=== PATIENT | female | born 1975 | race Caucasian/White ===

== ENCOUNTER 2022-02-14 14:21 | Emergency (ER) | payer MEDICARE, MEDICAID ==
[~2022-02-14] VITALS: Ht 152.4 cm; Wt 70.9 kg
[2022-02-14 14:56] LABS: BASO % 0.4 % (0.0-1.0); EOS # 0.2 10^3/uL (0.0-0.5); EOS % 1.6 % (0.0-3.0); HEMATOCRIT 38.2 % (36.0-47.0); HEMOGLOBIN 12.9 g/dl (12.0-15.5); LYMPH # 2.9 10^3/uL (1.5-5.0); MEAN CORPUSCULAR HEMOGLOBIN 34.3 pg (27.0-33.0); MEAN CORPUSCULAR HGB CONC 33.8 g/dl (32.0-36.5); MEAN CORPUSCULAR VOLUME 101.6 fl (80.0-96.0); MONO # 0.5 10^3/uL (0.0-0.8); MONO % 4.9 % (2.0-8.0); NEUTROPHILS # 6.1 10^3/uL (1.5-8.5); NEUTROPHILS % 62.7 % (36.0-66.0); PLATELET COUNT, AUTOMATED 228 10^3/uL (150-450); RED BLOOD COUNT 3.76 10^6/uL (4.00-5.40); WHITE BLOOD COUNT 9.7 10^3/uL (4.0-10.0)
[2022-02-14 15:07] LABS: INR 0.94; PARTIAL THROMBOPLASTIN TIME 30.8 SECONDS (25.9-37.0)
[2022-02-14 15:19] LABS: CK-MB VALUE MASS < 1.0 NG/ML (<3.6); CPK CREATINE PHOSPHOKINASE 61 U/L (26-192); MB/CK RELATIVE INDEX 1.64 (< OR =4)
[2022-02-14] MEDS ORDERED: ISOVUE-370 76% 100ML VIAL As Ordered ONE (15:19)
[2022-02-14] MEDS ORDERED: MORPHINE 4 MG/ML 1ML VIAL/SYRINGE IV ONE ×2 (15:20→17:00)
[2022-02-14 15:23] LABS: ALBUMIN 3.6 GM/DL (3.2-5.2); ALT/SGPT 13 U/L (12-78); AMYLASE 26 U/L (25-115); BILIRUBIN,DIRECT < 0.1 MG/DL (0.0-0.2); BILIRUBIN,TOTAL 0.5 MG/DL (0.2-1.0); ETHYL ALCOHOL (ETHANOL) < 0.003 % (0.000-0.010); LIPASE 43 U/L (73-393); TOTAL PROTEIN 6.6 GM/DL (6.4-8.2)
[2022-02-14] MEDS ORDERED: UNRESOLVED CLARIFICATION ENTRY XX STA (15:24)
[2022-02-14] MEDS ORDERED: TRAM1CAP15 PO (15:40)
[2022-02-14] MEDS ORDERED: PANT40TA29 PO (15:41)
[2022-02-14] MEDS ORDERED: SERO400T PO (15:41)
[2022-02-14] MEDS ORDERED: NS 1,000 ML IV ONE (17:05)
[2022-02-14] MEDS ORDERED: traMADol 50 MG TAB (HOME DOSE PACK) PO ONE (18:40)
[2022-02-14 18:45] VITALS: BP 98/65
== END 2022-02-14 19:00 | disposition home or self-care (01) ==
LOC: EDBD 14:21 → M ED 14:21
DX: S20.229A Contusion of unspecified back wall of thorax, initial encounter (principal); M54.2 Cervicalgia; V91.89XA Other injury due to other accident to unspecified watercraft, initial encounter; Z98.890 Other specified postprocedural states; Z79.899 Other long term (current) drug therapy; Z88.8 Allergy status to other drugs, medicaments and biological substances; Z91.018 Allergy to other foods
CPT/HCPCS: 70450; 70486; 71045; 71260; 72125; 72128; 72131; 72170; 74177; 80047; 80076; 82077; 82150; 82550; 82553; 83605; 83690; 84484; 85025; 85610; 85730; 86850; 86900; 86901; 93041; 94760; 96361; 96374; 96376; 99291; J2270; Q9967